=== PATIENT | female | born 1955 | race African-American/Black ===

== ENCOUNTER 2016-05-18 21:41 | Emergency (ER) | payer OTHER ==
[~2016-05-18] VITALS: Ht 160 cm; Wt 130.0 kg
[2016-05-18 21:43] VITALS: BP 168/73; PULSE 70; RESP 16; TEMP 97.8; O2SAT 98
--- NOTE | 2016-05-18 22:39 | PD ---
HPI Chief Complaint: Rig Welder Problem/Complaint Time Seen by Provider: 21:51 Travel History International Travel<30 days: No Contact w/Intl Traveler<30days: No Traveled to known affect area: No History of Present Illness HPI This is a 60-year-old female who presents to the emergency department with vaginal bleeding that been present for 5 days associated with pelvic cramping. She says she is change 6 pads today. She's passed some blood clots. She says she hasn't had her menstrual cycle since 2005 and this really worries her. She is from [facility] and is visiting her daughter on vacation. She denies any lightheadedness or dizziness. She was told in the past that she had a fibroid. PFSH Past Medical History Cardiovascular Problems: Yes (HEARTH MURMUR ) Diminished Hearing: No Genitourinary: Yes (OVARYAN CYST ) Tetanus Vaccination: > 5 Years Influenza Vaccination: No ?: Not Past Surgical History Surgical History: No Previous Surgery Social History Alcohol Use: Yes (OCASSIONALLY) Tobacco Use: No Substance Use: No Allergies-Medications (Allergen,Severity, Reaction): Coded Allergies: Penicillin (Verified Allergy, Intermediate, RASH, 05/18/16) Reported Meds & Prescriptions Reported Meds & Active Scripts Active No Active Prescriptions or Reported Medications Review of Systems Except as stated in HPI: all other systems reviewed are Neg Physical Exam Narrative GENERAL:Well appearing, no acute distress SKIN: Warm and dry. HEAD: Atraumatic. Normocephalic. EYES: Pupils equal and round. No injection or drainage. ENT: Moist mucous membranes NECK: Trachea midline. CARDIOVASCULAR: Regular rate and rhythm. No murmur appreciated. RESPIRATORY: Clear to auscultation. Breath sounds equal bilaterally. GASTROINTESTINAL: Abdomen soft, non-tender, nondistended. MIRROR FINISHING MACHINE OPERATOR: Cervical exam is limited by body habitus. I appreciate a firm mass in the right adnexa. There is a scant amount of dark blood in the vault. MUSCULOSKELETAL: No obvious deformities. NEUROLOGICAL: Awake and alert. No obvious cranial nerve deficits. Moving all extremities. PSYCHIATRIC: Appropriate mood and affect; insight and judgment normal. Data Data Last Documented VS Vital Signs Date Time Temp Pulse Resp B/P Pulse Ox O2 Delivery O2 Flow Rate FiO2 05/18/16 21:55 17 05/18/16 21:43 97.8 70 168/73 98 Room Air Orders Complete Blood Count With Diff (05/18/16 22:08) Basic Metabolic Panel (Bmp) (05/18/16 22:08) Us Pelvis Comp W Transvaginal (05/18/16 ) Ed Urine Pregnancytest Poc (05/18/16 22:08) Labs Laboratory Tests Test 05/18/16 22:00 White Blood Count 10.3 TH/MM3 Red Blood Count 4.50 MIL/MM3 Hemoglobin 12.2 GM/DL Hematocrit 36.9 % Mean Corpuscular Volume 82.1 FL Mean Corpuscular Hemoglobin 27.1 PG Mean Corpuscular Hemoglobin 33.1 % Concent Red Cell Distribution Width 15.6 % Platelet Count 293 TH/MM3 Mean Platelet Volume 8.9 FL Neutrophils (%) (Auto) 51.6 % Lymphocytes (%) (Auto) 36.2 % Monocytes (%) (Auto) 9.1 % Eosinophils (%) (Auto) 2.3 % Basophils (%) (Auto) 0.8 % Neutrophils # (Auto) 5.3 TH/MM3 Lymphocytes # (Auto) 3.7 TH/MM3 Monocytes # (Auto) 0.9 TH/MM3 Eosinophils # (Auto) 0.2 TH/MM3 Basophils # (Auto) 0.1 TH/MM3 CBC Comment DIFF FINAL Differential Comment Sodium Level 140 MEQ/L Potassium Level 4.4 MEQ/L Chloride Level 106 MEQ/L Carbon Dioxide Level 26.7 MEQ/L Anion Gap 7 MEQ/L Blood Urea Nitrogen 14 MG/DL Creatinine 0.82 MG/DL Estimat Glomerular Filtration 87 ML/MIN Rate Random Glucose 94 MG/DL Calcium Level 8.6 MG/DL [facility] Medical Decision Making Medical Screen Exam Complete: Yes Emergency Medical Condition: Yes Interpretation(s) Afebrile, no tachycardia, hypertensive Last 24 hours Impressions Pelvis Ultrasound 05/18/16 0000 Signed Impressions: Service Date/Time: Wednesday, May 18, 2016 22:38 - CONCLUSION: Uterine fibroids. Complex fluid in the endometrial cavity characteristic of blood. Gennaro Spears MD Differential Diagnosis Endometrial cancer, endometrial hyperplasia, fibroid uterus, anemia Narrative Course This is a 60-year-old female who presents to the emergency department with vaginal bleeding for 5 days having not had a menstrual cycle in years. She otherwise well-appearing. Labs are obtained which demonstrate no anemia. Ultrasound demonstrates uterine fibroids. Patient may still require an endometrial biopsy. I explained this to her That we can't rule out cancer in the emergency department. She was referred to her home livestock commission agent. Diagnosis Primary Impression: Abnormal vaginal bleeding Patient Instructions: General Instructions Additional Instructions: If you develop severe or worsening abdominal pain, fever>100.4, persistent vomiting or inability to eat or drink return to the emergency department immediately. It is very important that you follow-up with a livestock commission agent regarding your vaginal bleeding to make sure you don't of cancer. Med/Other Pt SpecificInfo: No Change to Meds Scripts No Active Prescriptions or Reported Meds Disposition: DISCHARGE HOME Condition: Stable Megan Lugo MD May 18, 2016 22:39
[2016-05-18 22:45] LABS: AUTOMATED NEUTROPHIL # 5.3 TH/MM3 (1.8-7.7); BASOPHIL # 0.1 TH/MM3 (0-0.2); BASOPHIL % 0.8 % (0.0-2.0); EOSINOPHIL # 0.2 TH/MM3 (0-0.4); EOSINOPHIL % 2.3 % (0.0-4.0); HEMATOCRIT 36.9 % (35.0-46.0); HEMO FLAGS DIFF FINAL; LYMPH % 36.2 % (9.0-44.0); LYMPHOCYTE # 3.7 TH/MM3 (1.0-4.8); MEAN CELL VOLUME 82.1 FL (80.0-100.0); MEAN CORPUSCULAR HEMOGLOBIN 27.1 PG (27.0-34.0); MEAN CORPUSCULAR HGB CONC 33.1 % (32.0-36.0); MONO % 9.1 % (0.0-8.0); NEUT % 51.6 % (16.0-70.0); PLATELET COUNT 293 TH/MM3 (150-450); RED CELL DISTRIBUTION WIDTH 15.6 % (11.6-17.2); WHITE BLOOD COUNT 10.3 TH/MM3 (4.0-11.0)
[2016-05-18 23:26] LABS: BICARBONATE 26.7 MEQ/L (21.0-32.0); POTASSIUM 4.4 MEQ/L (3.5-5.1)
--- NOTE | 2016-05-18 23:34 | RADRPT ---
EXAM DATE/TIME: 05/18/2016 22:38 [facility] COMPARISON: No previous studies available for comparison. INDICATIONS : Vaginal bleeding and pain post menopausal. MEDICAL HISTORY : Ovarian cyst. Uterine fibroid. Heart murmur. SURGICAL HISTORY : Dilation and curettage. ENCOUNTER: Initial ACUITY: 4-6 days PAIN SCORE: 8/10 LOCATION: Bilateral pelvis MEASUREMENTS: UTERUS: 12.0 x 9.6 x 7.1 cm ENDOMETRIAL STRIPE: 2 mm RIGHT OVARY: Non visualized LEFT OVARY: Non visualized FINDINGS: The uterus is mildly inhomogeneous. A 3.1 x 2.9 x 2.7 cm hypoechoic mass in the mid body posteriorly is noted with blood flow characteristic of a fibroid. Also noted is a 3.6 x 3.7 x 4.3 cm mass on the right with blood flow characteristic of a fibroid. There is a mixed echotexture partially echogenic m ass with blood flow measuring 3.1 x 2.6 x 2.8 cm anterior fundal region with mass effect on the endom etrial cavity. Also noted is a 3.9 x 3.8 x 3.8 cm hypoechoic mass on the left. A few nabothian cysts are present. Within the endometrial cavity an elongated area of decreased echotexture measuring 3.2 c m is noted with no blood flow likely representing blood within the endometrial cavity. There is no de finite endometrial thickening. The ovaries CONCLUSION: Uterine fibroids. Complex fluid in the endometrial cavity characteristic of blood. Gennaro Spears MD on May 18, 2016 at 23:31 Board Certified Radiologist. This report was verified electronically.
== END 2016-05-19 00:47 | disposition home or self-care (01) ==
LOC: NEPC 21:41
DX: N93.9 Abnormal uterine and vaginal bleeding, unspecified (principal)
CPT/HCPCS: 76830; 76856; 80048; 84703; 85025

== ENCOUNTER → 2017-08-27 | Outpatient (CLI) | payer OTHER ==
[2017-08-27 12:11] LABS: AUTOMATED NEUTROPHIL # 2.8 TH/MM3 (1.8-7.7); BASOPHIL # 0.1 TH/MM3 (0-0.2); BASOPHIL % 1.1 % (0.0-2.0); EOSINOPHIL # 0.2 TH/MM3 (0-0.4); EOSINOPHIL % 3.6 % (0.0-4.0); HEMATOCRIT 37.2 % (35.0-46.0); HEMOGLOBIN 12.2 GM/DL (11.6-15.3); LYMPH % 46.1 % (9.0-44.0); LYMPHOCYTE # 3.1 TH/MM3 (1.0-4.8); MEAN CELL VOLUME 82.3 FL (80.0-100.0); MEAN CORPUSCULAR HEMOGLOBIN 27.1 PG (27.0-34.0); MEAN CORPUSCULAR HGB CONC 32.9 % (32.0-36.0); MEAN PLATELET VOLUME 8.5 FL (7.0-11.0); MONO % 7.8 % (0.0-8.0); MONOCYTE # 0.5 TH/MM3 (0-0.9); NEUT % 41.4 % (16.0-70.0); PLATELET COUNT 282 TH/MM3 (150-450); RED BLOOD COUNT 4.51 MIL/MM3 (4.00-5.30); RED CELL DISTRIBUTION WIDTH 15.2 % (11.6-17.2); WHITE BLOOD COUNT 6.7 TH/MM3 (4.0-11.0)
[2017-08-27 12:41] LABS: BICARBONATE 24.3 MEQ/L (21.0-32.0); CALCIUM 8.7 MG/DL (8.5-10.1); CREATININE 0.55 MG/DL (0.50-1.00)
--- NOTE | 2017-08-27 17:13 | EKG ---
Date Performed: 08/27/2017 Time Performed: 11:53:34 PTAGE: 62 years EKG: SINUS BRADYCARDIA LOW QRS VOLTAGE IN PRECORDIAL LEADS BORDERLINE ECG NO PREVIOUS TRACING DOCTOR: Anmol Owusu Interpretating Date/Time 08/27/2017 17:11:49
== END ==
LOC: CPRE 11:34
PROVIDERS: ATTEND Obstetrics & Gynecology
DX: Z01.810 Encounter for preprocedural cardiovascular examination (principal); Z01.812 Encounter for preprocedural laboratory examination; R94.31 Abnormal electrocardiogram [ECG] [EKG]
CPT/HCPCS: 36415; 80048; 85025; 86850; 86900; 86901; 93005

== ENCOUNTER 2017-08-29 05:26 | Observation (INO) | payer OTHER ==
[~2017-08-29] VITALS: Ht 160 cm; Wt 124.1 kg
[2017-08-29] MEDS ORDERED: GABAPENTIN 300 MG CAP PO ONE (06:00)
[2017-08-29] MEDS ORDERED: SODIUM CHLORIDE 0.9% IV SCH (06:00)
[2017-08-29] MEDS ORDERED: POVIDONE IODINE 5% (ANTISEPSIS KIT) 4 APPLICATIONS EACH NARE PRN (06:00)
[2017-08-29] MEDS ORDERED: CLINDAMYCIN 600 MG/NS PREMIX 50 ML IV SCH (06:00)
[2017-08-29] MEDS ORDERED: LACTATED RINGER'S 1000 ML IV PRN (06:00)
[2017-08-29] MEDS ORDERED: CHLORHEXIDINE GLUCONATE 2 % 1 PACK (2 CLOTHS) TOPICAL PRN (06:00)
[2017-08-29] MEDS ORDERED: SODIUM CHLORID 0.9% 500 ML IV PRN (06:00)
[2017-08-29] MEDS ORDERED: METOPROLOL TARTRATE 25 MG TAB PO PRN (06:00)
[2017-08-29] MEDS ORDERED: GENTAMICIN IV SCH (06:00)
[2017-08-29] MEDS ORDERED: ACETAMINOPHEN 1000 MG/100 ML 100 ML IV ONE (06:00)
[2017-08-29] MEDS ORDERED: BUPIVACAINE/EPINEPHRINE 0.5% PF 30 ML VIAL ONE (07:59)
[2017-08-29] MEDS ORDERED: VASOPRESSIN 20 UNITS/ML VIAL ONE (09:43)
[2017-08-29] MEDS ORDERED: GENTAMICIN SULFATE 80 MG/2 ML VIAL ONE (11:00)
[2017-08-29] MEDS ORDERED: CLINDAMYCIN PHOS 600 MG/4 ML VIAL ONE (11:00)
[2017-08-29] MEDS ORDERED: ePHEDrine/NS 25 MG/5 ML SYRINGE IV ONE (11:38)
[2017-08-29] MEDS ORDERED: LIDOCAINE HCL 1% PF 5 ML SYRINGE OTHER ONE (11:38)
[2017-08-29] MEDS ORDERED: NEOSTIGMINE 5 MG/5 ML SYRINGE IV PUSH ONE (11:38)
[2017-08-29] MEDS ORDERED: NORMOSOL R INJ 2,000 ML IV ONE (11:38)
[2017-08-29] MEDS ORDERED: PHENYLEPH/NS 1000 MCG/10 ML SYR IV ONE (11:38)
[2017-08-29] MEDS ORDERED: DEXAMETHASONE SOD PHOS 4 MG/ML VIAL IV ONE (11:38)
[2017-08-29] MEDS ORDERED: GLYCOPYRROLATE 1 MG/5 ML SYRINGE IV PUSH ONE (11:38)
[2017-08-29] MEDS ORDERED: KETOROLAC TROMETHAMINE 30 MG/ML (IVP) VIAL IV PUSH ONE (11:38)
[2017-08-29] MEDS ORDERED: LACTATED RINGER'S 1000 ML INJ 1,000 ML IV ONE (11:38)
[2017-08-29] MEDS ORDERED: PROPOFOL 200 MG/20 ML AMP IV ONE (11:38)
[2017-08-29] MEDS ORDERED: ROCURONIUM INJ 50 MG/5 ML SYRINGE IV PUSH ONE (11:38)
[2017-08-29] MEDS ORDERED: ONDANSETRON HCL 4 MG/2 ML VIAL IV PUSH ONE (11:38)
[2017-08-29] MEDS ORDERED: LABETALOL HCL 100 MG/20 ML VIAL IV ONE (11:38)
--- NOTE | 2017-08-29 12:54 | HHI.PR ---
Immediate Post Op Note Procedure Date: August 29, 2017 Pre Op Diagnosis: 1. Fibroid uterus 2. Pelvic pressure/pelvic pain 3. Left labial skin tag Post Op Diagnosis: 1. Fibroid uterus 2. Pelvic pressure/pelvic pain 3. Left labial skin tag 4. Left proximal vaginal cyst Surgeon: Chris Duenas Lead Refinery Supervisor(s): Dr. Mariann Davis was present and scrubbed throughout the case in addition to the [place] main OR staff Procedure: Laparoscopic supracervical hysterectomy, bilateral salpingo-oophorectomy, left vulvar skin tag removal, left vaginal cyst excision. Findings: 1. Enlarged fibroid uterus, normal-appearing fallopian tubes and ovaries bilaterally. New 2. Suspected skin tag of the superior left labia majora, approximately 1 cm in size. 3. Left proximal vaginal cyst measuring approximate 1 cm in size, drained white serous fluid Additional Information: Full dictated report under dictation number: [id number] Complications: None Specimen(s) removed: -Uterine body, bilateral fallopian tubes and ovaries sent together. -Left labial skin tag sent separately -Left vaginal cyst sent separately Estimated blood loss: 175 cc Anesthesia: General Drains: None Fluids: 1700 cc IVF Urinary Output (mLs): 675 Patient to: PACU Patient Condition: Good Chris Duenas MD August 29, 2017 12:54
[2017-08-29] MEDS ORDERED: diphenhydrAMINE HCL 25 MG CAP PO PRN (13:00)
[2017-08-29] MEDS ORDERED: SODIUM CHLORIDE 0.9% FLUSH 10 ML FLUSH IV FLUSH PRN (13:00)
[2017-08-29] MEDS: GABAPENTIN 100 MG CAP PO SCH ×2 (13:00→18:00)
[2017-08-29] MEDS ORDERED: ZOLPIDEM TARTRATE 5 MG TAB PO PRN (13:00)
[2017-08-29] MEDS: DOCUSATE SODIUM 100 MG CAP PO SCH ×2 (13:00→22:19)
[2017-08-29] MEDS ORDERED: IBUPROFEN 600 MG TAB PO PRN (13:00)
[2017-08-29] MEDS ORDERED: oxyCODONE/ACETAMINOPHEN 5 MG/325 MG TAB PO PRN ×2 (13:00)
[2017-08-29] MEDS ORDERED: DO NOT ADM ANY ANTICOAGULANT DRUGS PRN (13:02)
--- NOTE | 2017-08-29 13:06 | HHI.DS ---
Discharge Summary Admission Date 08/29/2017 Discharge Date: August 30, 2017 Admitting Diagnosis Fibroid uterus, pelvic pressure and pain Procedures Laparoscopic supracervical hysterectomy, bilateral salpingo-oophorectomy, left labial skin tag excision, left vaginal cyst excision Brief History This is a 62year-old -[place] female who is seen in outpatient setting for pelvic pressure and pain and found to have a fibroid uterus, she was dispositioned for the above surgery, it was carried out without difficulty, on postoperative day #1 she was meeting all of her milestones and was prepared for discharge home. We discussed post op precautions, expectations and follow up. Patient was given medications for pain pre operatively in the office. Pt Condition on Discharge: Good Discharge Disposition: Discharge Home Discharge Instructions DIET: Follow Instructions for: As Tolerated, No Restrictions Activities you can perform: Regular-No Restrictions Activities to avoid: Driving for 24 hrs, Lifting/Bending, Strenuous Activity, Sexual Activity Follow up Referrals: ASSOCIATE PROPERTY MANAGER - 1 Week @ [facility] with Chris Duenas MD, Zachary Sloan MD August 29, 2017 13:06
[2017-08-29] MEDS ORDERED: MIDAZOLAM HCL 2 MG/2 ML VIAL ONE (13:08)
[2017-08-29] MEDS ORDERED: *MEPERIDINE 25 MG INJ VIAL PERIprocedural Use ONLY ONE (13:30)
--- NOTE | 2017-08-29 13:37 | MP ---
cc: Chris Duenas MD DATE OF OPERATION: 08/29/2017 PREOPERATIVE DIAGNOSIS: 1. Fibroid uterus. 2. Pelvic pressure and pelvic pain. 3. Left labial skin tag. POSTOPERATIVE DIAGNOSIS(ES): 1. Fibroid uterus. 2. Pelvic pressure and pelvic pain. 3. Left labial skin tag. 4. Left proximal vaginal cyst. 5. Status post hysterectomy. SURGEON: Dr. Chris Duenas. MAINTENANCE PLANNER SURGEON: Dr. Mariann Palencia was was present and scrubbed throughout the case, in addition to the [facility] main OR staff. PROCEDURE: Laparoscopic supracervical hysterectomy, bilateral salpingo-oophorectomy, left labial skin tag excision, left vaginal cyst excision. - The cervix was left secondary to concerns of operative time and anesthesia exposure, given the lack of growth of her fibroids over the span of a year and the fact she did not have problems with bleeding my concerns for undiagnosed malignancy were low. FINDINGS: 1. Enlarged fibroid uterus, normal appearing fallopian tubes and ovaries bilaterally, no pelvic adhesions disease. Some minimal filmy adhesions of the left and right colon just cephalad to the pelvic sidewall. Normal appearing gallbladder, liver, and appendix. 2. Suspected skin tag at the superior left labia majora approximately 1 cm in size. 3. Left proximal vaginal cyst measuring 1 cm in size drained of a white serous fluid upon rupture. ANTIBIOTICS: 180 mg of IV gentamicin and 600 mg of IV clindamycin preoperatively and then redosed at 3 hours. DVT PROPHYLAXIS: Sequential compression devices throughout the case. ESTIMATED BLOOD LOSS: 175 mL. URINE OUTPUT: 675 mL clear via Arellano. FLUID REPLACEMENT: 1700 mL lactated Ringers. SPECIMENS REMOVED: 1. Uterine body, fallopian tubes and ovaries sent together. 2. Left labial skin tag sent separately. 3. Left vaginal cyst sent separately. COMPLICATIONS: None. COUNTS: Correct x2. DISPOSITION: Stable to PACU, then to the postop floor. INDICATIONS: This patient is a 62-year-old -[place] female who was seen in the outpatient setting for pelvic pressure and pain and was found to have a fibroid uterus. She also had a skin tag and was counseled for A TLH and BSO with labial skin tag removal. To note the left vaginal cyst was not recognized preoperatively. Please see H and P for further details and consent. DESCRIPTION OF PROCEDURE: The patient was taken to the operating room, placed in the lithotomy position in Kenn stirrups with her arms tucked. The abdomen and vagina were prepped and draped in a sterile fashion. The uterus was sounded to around 12cm, A large VCare uterine manipulator was inserted, as well as a Arellano. A 5 mm umbilical incision was made. To note, approximately 20 mL of 1% lidocaine with epinephrine was used for all port sites and skin tag excision. Using a 5mm trocar the abdomen was entered with direct optical view technique, insufflated with CO2 gas and surveyed. The trocar was removed. A 3-4 cm incision was made bisecting the umbilicus vertically, I sharply dissected down to the fascia, which was extended 3-4 cm vertically. A Large purple GelPOINT system was used and the Juliano retractor was inserted and the abdomen was insufflated again with CO2 gas. Two left lower quadrant 5 mm trocars and a 5mm right lower quadrant trocar were inserted under direct intra-abdominal visualization. Using an ENSEAL device, the IP ligaments were clamped, dessicated and and transected bilaterally after skeletonization and isolation from the pelvic side wall. This was done with retroperitoneal dissection and isolation away from the ureter, the round ligaments transected and were opened. The anterior broad ligament was dissected down to the colpotomy ring and the bladder pushed caudad. The posterior leaf of the broad ligament was dissected down to the uterosacrals. The uterine arteries were skeletonized, grasped desiccated and transected. At the isthmus of the uterus using monopolar energy, the uterine body was amputated. The uterus was placed in an [employer] containment bag and elevated to the abdominal wall. A blade guard was inserted and the uterus was mechanically morcellated with a scalpel and removed in piecemeal fashion. The bag was removed. The bag was filled with water and no defect appreciated. The abdomen was re-surveyed and irrigated. A Surgicel powder was applied over the remaining cervix and surgical field and found to be hemostatic. The ureters were away from the operating field as well and peristalsing. The abdomen was desufflated. The retractors were removed and the umbilicus incisional fascia was closed with 0 running Vicryl. The subcutaneous tissue at the umbilicus was closed with 3-0 Vicryl. The skin for all sites were closed with 4-0 Monocryl in a running fashion and skin glue was used aswell. Using a scalpel, the left labial skin tag was shaved off and the skin reapproximated with 4-0 Monocryl. The uterine manipulator was removed as well as the Arellano. A left vaginal cyst was appreciated at the beginning of the case and was shaved off of the left vaginal sidewall with Metzenbaum scissors and hemostasis was achieved with the Bovie. No cystoscopy was performed as well because we did not remove the cervix and we were away from the ureters throughout the case. MD LOTTIE Marx/VIKASH , 01:03 PM , 01:36 PM CADEN
[2017-08-29] MEDS: LACTATED RINGER'S 1000 ML INJ 1,000 ML IV SCH ×2 (13:43→22:00)
[2017-08-29] MEDS: KETOROLAC TROMETHAMINE 30 MG/ML (IVP) VIAL IVP SCH ×2 (13:43→22:16)
[2017-08-29] MEDS ORDERED: ONDANSETRON ODT 4 MG TAB PO PRN (14:00)
[2017-08-29 16:00] VITALS: BP 125/58; PULSE 66; RESP 16; TEMP 97.3; O2SAT 98
[2017-08-29 20:00] VITALS: BP 135/68; PULSE 80; RESP 17; TEMP 97.8; O2SAT 97
[2017-08-29] MEDS: SODIUM CHLORIDE 0.9% FLUSH 10 ML FLUSH IV FLUSH SCH (22:16)
[2017-08-30] VITALS: BP 107/50; PULSE 62; RESP 17; TEMP 97.6; O2SAT 98
[2017-08-30] MEDS: KETOROLAC TROMETHAMINE 30 MG/ML (IVP) VIAL IVP SCH ×2 (01:22→08:00)
[2017-08-30 04:00] VITALS: BP 133/58; PULSE 59; RESP 19; TEMP 97.9; O2SAT 99
[2017-08-30] MEDS: LACTATED RINGER'S 1000 ML INJ 1,000 ML IV SCH (05:42)
[2017-08-30 08:00] VITALS: BP 132/55; PULSE 64; RESP 16; TEMP 97.9; O2SAT 95
[2017-08-30] MEDS: GABAPENTIN 100 MG CAP PO SCH (09:00)
[2017-08-30] MEDS: SODIUM CHLORIDE 0.9% FLUSH 10 ML FLUSH IV FLUSH SCH (09:00)
--- NOTE | 2017-08-30 10:21 | HHI.PR ---
Subjective Remarks Doing well, pain is well controlled, eating well, voiding, scant VB Objective Vital Signs Vital Signs Date Time Temp Pulse Resp B/P (MAP) Pulse Ox O2 Delivery O2 Flow Rate FiO2 08/30/17 08:00 97.9 64 16 132/55 (80) 95 08/30/17 04:00 97.9 59 19 133/58 (83) 99 08/30/17 00:00 97.6 62 17 107/50 (69) 98 08/29/17 20:00 97.8 80 17 135/68 (90) 97 08/29/17 16:00 97.3 66 16 125/58 (80) 98 08/29/17 15:30 97.8 60 18 114/52 (72) 96 Room Air 08/29/17 15:00 60 18 114/52 (72) 96 Room Air 08/29/17 14:00 66 18 115/56 (75) 96 Room Air 08/29/17 13:45 71 18 115/54 (74) 100 Room Air 08/29/17 13:30 75 18 111/54 (73) 100 Room Air 08/29/17 13:15 74 18 123/60 (81) 100 08/29/17 13:00 97.6 76 18 124/60 (81) 98 Nasal Cannula 2 I/O 08/29/17 08/29/17 08/29/17 08/30/17 08/30/17 08/30/17 07:00 15:00 23:00 07:00 15:00 23:00 Intake Total 1700 ml 240 ml Output Total 850 ml Balance 850 ml 240 ml Intake Oral 240 ml Other 1700 ml Output Urine Total 675 ml Estimated Blood Loss 175 ml # Voids 2 Objective Remarks Chest is clear, regular rate and rhythm. Abdomen is soft and non-distended. Dressings clean and dry. Ext no CCE. A/P Assessment and Plan Post Op Day 1 Doing well Home today and return to office in 1 week. Chris Duenas MD August 30, 2017 10:21
== END 2017-08-30 11:39 | disposition home or self-care (01) ==
LOC: HSDC 05:26 → HSDI 12:49 → N07B 15:50
PROVIDERS: ADMIT Obstetrics & Gynecology; ATTEND Obstetrics & Gynecology
DX: D25.9 Leiomyoma of uterus, unspecified (principal); R10.2 Pelvic and perineal pain; N90.89 Other specified noninflammatory disorders of vulva and perineum; N89.8 Other specified noninflammatory disorders of vagina; L72.0 Epidermal cyst
CPT/HCPCS: 00840; 00940; 11200; 57135; 58544; 88304; 88307; 94150; G0378; J0131; J1100; J1580; J1885; J2175; J2250; J2370; J2405; J2710; J3010; J7120; 88305